=== PATIENT | female | born 1990 | race Caucasian/White ===

== ENCOUNTER 2022-12-28 14:46 | Emergency (ER) | payer OTHER ==
[2022-12-28 14:58] VITALS: BP 126/72; PULSE 85; RESP 17; TEMP 98; BMI 23.7
[2022-12-28] MEDS ORDERED: SODIUM CHLORIDE 1,000 ML IV STA (15:15)
[2022-12-28 15:56] LABS: INR 1.1 (0.83-1.09); PROTHROMBIN TIME (PATIENT) 12.7 SEC (9.7-13.0)
[2022-12-28 15:58] LABS: ACTIVATED PTT 34.2 SECONDS (25.2-36.5)
[2022-12-28 15:59] LABS: POTASSIUM 3.3 mmol/L (3.5-5.1)
[2022-12-28 16:01] LABS: BLOOD UREA NITROGEN 9.9 mg/dL (7-18); CALCIUM 8.9 mg/dL (8.5-10.1)
[2022-12-28 16:04] LABS: BASO % 0.3 % (0-2.0); EOS % 1.8 % (0-4.5); HEMATOCRIT 38.7 % (32.4-45.2); LYMPH % 33.8 % (8-40); MCH 32.6 pg (25.7-33.7); MCHC 33.6 g/dl (32.0-36.0); MEAN CELL VOLUME 96.8 fl (80-96); MEAN PLT VOLUME 7.6 fl (7.5-11.1); MONO % 9.8 % (3.8-10.2); NEUT % 54.3 % (42.8-82.8); PLATELET COUNT 279 10^3/uL (134-434); RDW 13.8 % (11.6-15.6)
[2022-12-28 16:05] LABS: CREATININE 0.6 mg/dL (0.55-1.3)
[2022-12-28 16:40] LABS: EPI CELLS >36 /uL (0-25.1); HYALINE CASTS 1 /uL (0-3.1); URINE APPEARANCE CLEAR; URINE BACTERIA 371 /uL (0-1359); URINE BILIRUBIN NEGATIVE (NEGATIVE); URINE COLOR YELLOW; URINE GLUCOSE (UA) NEGATIVE (NEGATIVE); URINE KETONE NEGATIVE (NEGATIVE); URINE LEUK ESTERASE NEGATIVE (NEGATIVE); URINE NITRITE NEGATIVE (NEGATIVE); URINE PROTEIN NEGATIVE (NEGATIVE); URINE RBC 22 /uL (0-23.9); URINE UROBILINOGEN 0.2 mg/dL (0.2-1.0); URINE WBC 18 /uL (0-25.8)
[2022-12-28 17:33] LABS: HCG,QUALITATIVE URINE Positive
[2022-12-28] MEDS ORDERED: POTASSIUM CHLORIDE TABS 20 MEQ TABLET.ER (FP) PO ONE ×3 (18:12→18:52)
== END 2022-12-28 19:05 | disposition home or self-care (01) ==
LOC: JER 14:46
PROC: 3E0337Z Introduction of Electrolytic and Water Balance Substance into Peripheral Vein, Percutaneous Approach (ICD-10-PCS; principal; 2022-12-28)
DX: O26.851 Spotting complicating pregnancy, first trimester (principal); O23.91 Unspecified genitourinary tract infection in pregnancy, first trimester; R82.71 Bacteriuria; O26.891 Other specified pregnancy related conditions, first trimester; N83.01 Follicular cyst of right ovary; Z3A.01 Less than 8 weeks gestation of pregnancy
CPT/HCPCS: 36415; 76817-TC; 80048; 81003; 84702; 84703; 85025; 85610; 85730; 86850; 86900; 86901; 99284-25

== ENCOUNTER 2023-08-20 11:22 | Inpatient (IN) | payer OTHER ==
[2023-08-20] MEDS: ELECTROLYTE-148 SOLN 1,000 ML IV SCH (11:45)
[2023-08-20 12:55] VITALS: RESP 18; BMI 34.2
[2023-08-20] MEDS ORDERED: FENTANYL/BUPIVACAINE/NS/PF - PCEA - 50 ML DISP.SYRIN EP ONE ×2 (12:57→17:50)
[2023-08-20] MEDS: FENTANYL/BUPIVACAINE/NS/PF - PCEA - 50 ML DISP.SYRIN EP SCH (14:00)
[2023-08-20] MEDS ORDERED: NALOXONE HCL 0.4 MG/ML VIAL IVPUSH PRN (14:18)
[2023-08-20] MEDS ORDERED: FENTANYL CITRATE/PF 50 MCG/ML VIAL ONE (16:56)
[2023-08-20] MEDS ORDERED: BUPIVACAINE HCL/PF 0.25% (2.5MG/ML) 10 ML VIAL ONE (16:57)
[2023-08-20] MEDS ORDERED: LIDOCAINE HCL 1% PRESERVATIVE FREE - 30ML VIAL ONE (19:09)
[2023-08-20] MEDS ORDERED: OXYTOCIN 20 UNITS in 0.9% NS 20 UNIT/1,000 ML INFUS.BAG IV ONE (19:09)
[2023-08-20] MEDS: OXYTOCIN 20 UNITS in 0.9% NS 20 UNIT/1,000 ML INFUS.BAG IV SCH (20:26)
[2023-08-20] MEDS: METHYLERGONOVINE MALEATE 0.2 MG/1 ML AMP IM PRN (20:34)
[2023-08-20] MEDS ORDERED: WITCH HAZEL 50% (TUCKS) 40 PAD/JAR PAD TP PRN (20:46)
[2023-08-20] MEDS ORDERED: BENZOCAINE 20% 57 GM BOTTLE TP PRN (20:46)
[2023-08-20] MEDS ORDERED: ACETAMINOPHEN 325 MG TABLET (FP) PO PRN (20:46)
[2023-08-20] MEDS ORDERED: oxyCODONE HCL 5 MG TABLET PO PRN (20:46)
[2023-08-20] MEDS ORDERED: BISACODYL 10 MG SUPP.RECT RC PRN (20:46)
[2023-08-20] MEDS ORDERED: BENZOCAINE 28 GM HEMORRHOIDAL OINTMENT TP PRN (20:46)
[2023-08-20 21:14] LABS: CORD BASE EXCESS -4.4 mmol/L (0-2); CORD HCO3 24.4 mmHg (20-29); CORD PCO2 59.6 mmHg (30-78); CORD pH 7.23 (7.14-7.44)
[2023-08-20 21:15] LABS: CORD BASE EXCESS -2.2 mmol/L (0-2); CORD HCO3 23.7 mmHg (20-29); CORD PCO2 44.2 mmHg (30-78); CORD pH 7.347 (7.14-7.44)
[2023-08-21] MEDS: IBUPROFEN 600 MG TABLET (FP) PO PRN (05:13)
[2023-08-21 08:09] LABS: BASO % 0.1 % (0-2.0); EOS % 0.2 % (0-4.5); HEMATOCRIT 35.1 % (32.4-45.2); HEMOGLOBIN 11.6 GM/dL (10.7-15.3); LYMPH % 14.6 % (8-40); MCH 31.7 pg (25.7-33.7); MEAN CELL VOLUME 96.3 fl (80-96); MONO % 6.7 % (3.8-10.2); NEUT % 78.4 % (42.8-82.8); PLATELET COUNT 189 10^3/uL (134-434); RBC 3.64 M/mm3 (3.60-5.2); RDW 13.8 % (11.6-15.6); WHITE BLOOD COUNT 13.2 K/mm3 (4.0-10.0)
[2023-08-21] MEDS: PRENATAL VITAMINS W/ FOLIC ACID TABLET (FP) PO SCH (09:59)
[2023-08-21] MEDS: SENNOSIDES/DOCUSATE COMBO (SENNA PLUS) TABLET (UD) PO PRN (20:05)
[2023-08-21 21:53] VITALS: PULSE 80
[2023-08-22 10:51] VITALS: BP 97/62; TEMP 98.2
== END 2023-08-22 13:25 | disposition home or self-care (01) | DRG 560 ==
LOC: JLDR 11:22 → J3W 22:52
PROVIDERS: ADMIT Obstetrics & Gynecology; ATTEND Obstetrics & Gynecology
PROC: 0KQM0ZZ Repair Perineum Muscle, Open Approach (ICD-10-PCS; principal; 2023-08-20)
DX: O70.1 Second degree perineal laceration during delivery (principal); Z3A.39 39 weeks gestation of pregnancy; Z37.0 Single live birth
CPT/HCPCS: 36415; 36600; 82803; 85025; 86850; 86900; 86901